=== PATIENT | female | born 1945 | race Caucasian/White ===

== ENCOUNTER 2018-05-02 19:06 | Inpatient (IN) | payer OTHER, MEDICAID ==
[~2018-05-02] VITALS: Ht 162.6 cm; Wt 68.1 kg
[2018-05-02 21:02] LABS: BASOPHIL % 0.2 % (0-2); PLATELET COUNT 319 x10^3mcL (130-400); RED CELL DISTRIBUTION WIDTH 13.6 % (11.5-14.5)
[2018-05-02 21:18] LABS: CALCIUM 8.8 mg/dL (8.5-10.1); CARBON DIOXIDE 29.3 mmol/L (21-32); CHLORIDE SERUM 104 mmol/L (98-107); GLUCOSE SERUM 98 mg/dL (74-106); POTASSIUM SERUM 3.6 mmol/L (3.5-5.1); SODIUM SERUM 141 mmol/L (136-145)
[2018-05-02 21:22] LABS: ALBUMIN 3.9 g/dL (3.4-5.0); ALKALINE PHOSPHATASE 87 U/L (46-116); ALT/SGPT 19 U/L (14-59); AST/SGOT 23 U/L (15-37); BILIRUBIN TOTAL 0.8 mg/dL (0.20-1.00); TOTAL PROTEIN, SERUM 7.9 g/dL (6.4-8.2)
[2018-05-02 21:44] LABS: UA SPECIFIC GRAVITY >=1.030 (1.005-1.035); microscopic required? YES; urine erythrocyte 1+ (NEGATIVE)
[2018-05-02 21:45] LABS: CK-MB 2.3 ng/mL (0-3.6)
[2018-05-02] MEDS ORDERED: LIPITOR80 MG PO (23:08)
[2018-05-02] MEDS ORDERED: ULTRAM50 MG PO (23:08)
[2018-05-02] MEDS ORDERED: FLE10 PO (23:10)
[2018-05-02 23:47] LABS: MAGNESIUM 2.2 mg/dL (1.8-2.4); PHOSPHOROUS 3.4 mg/dL (2.5-4.9)
[2018-05-03 00:20] VITALS: BP 122/50
[2018-05-03 00:27] VITALS: Ht 162.6 cm; Wt 68.1 kg
[2018-05-03 06:01] VITALS: BP 112/46
[2018-05-03 06:23] LABS: PLATELET COUNT 263 x10^3mcL (130-400); RED CELL DISTRIBUTION WIDTH 13.9 % (11.5-14.5)
[2018-05-03 06:24] LABS: BASOPHIL % 0 % (0-2)
[2018-05-03 06:41] LABS: CALCIUM 8.4 mg/dL (8.5-10.1); CARBON DIOXIDE 24.9 mmol/L (21-32); CHLORIDE SERUM 109 mmol/L (98-107); CREATININE SERUM 0.7 mg/dL (0.6-1.0); GLUCOSE SERUM 89 mg/dL (74-106); MAGNESIUM 2.3 mg/dL (1.8-2.4); PHOSPHOROUS 3.1 mg/dL (2.5-4.9); POTASSIUM SERUM 3.4 mmol/L (3.5-5.1); SODIUM SERUM 145 mmol/L (136-145)
[2018-05-03 08:53] LABS: AMPHETAMINE QUAL UR NONE DETECTED (See below)
[2018-05-03 09:34] VITALS: BP 132/42
[2018-05-03 13:16] VITALS: BP 136/43
[2018-05-03 16:32] VITALS: BP 123/43
[2018-05-03 21:04] VITALS: BP 125/42
[2018-05-04 05:31] VITALS: BP 105/49
[2018-05-04 10:01] VITALS: BP 124/50
[2018-05-04] MEDS ORDERED: AMO500 PO (11:15)
[2018-05-04] MEDS ORDERED: BIA500 PO (11:15)
[2018-05-04] MEDS ORDERED: PRI20 PO (11:16)
[2018-05-04 12:02] VITALS: BP 124/50
== END 2018-05-04 12:49 | disposition home or self-care (01) | DRG 640 ==
LOC: ED 19:06 → MU 23:01
PROVIDERS: Emergency Medicine; Internal Medicine Gastroenterology; ADMIT Internal Medicine
PROC: 0DB68ZX Excision of Stomach, Via Natural or Artificial Opening Endoscopic, Diagnostic (ICD-10-PCS; principal; 2018-05-03 13:00)
DX: E86.0 Dehydration (principal); N17.0 Acute kidney failure with tubular necrosis; N39.0 Urinary tract infection, site not specified; R80.9 Proteinuria, unspecified; E87.6 Hypokalemia; E83.51 Hypocalcemia; M47.812 Spondylosis without myelopathy or radiculopathy, cervical region; M47.816 Spondylosis without myelopathy or radiculopathy, lumbar region; G89.29 Other chronic pain; K44.9 Diaphragmatic hernia without obstruction or gangrene; K29.70 Gastritis, unspecified, without bleeding; Z98.1 Arthrodesis status; Z68.25 Body mass index [BMI] 25.0-25.9, adult
CPT/HCPCS: 43235; 87804; J0696; J1200; J1610; J2250; J2270; J2310; J2405; J2550; J2765; J3010; J3480; J3490; J7030; Q0092